=== PATIENT | male | born 1935 | race African-American/Black ===

== ENCOUNTER → 2024-06-06 | Day surgery (SDC) | payer MEDICARE, MEDICAID ==
[~2024-06-06] VITALS: Ht 177.8 cm; Wt 72.6 kg
[~2024-06-06] MED LIST: APIX5TAB PO; ASPI-1497 PO; ATOR-2 PO; EPHEDRINE SULFATE 50MG/ML VIAL ONE; HYDROMORPHONE HCL/PF 1MG/ML INJ IV PRN; LOSA100T33 PO; MEMA5TAB16 PO; METO-539 PO; ONDANSETRON HCL 4MG/2ML INJ IV PRN; PHENYLEPHRINE HCL 10MG/ML 1ML IV ONE; PROPOFOL 200MG/20ML VIAL IV ONE; SIMETHICONE 40 MG/0.6 ML 15ML ONE
[2024-06-06 07:51] LABS: BASOPHILS % 0.8 % (0.0-2.0); EOSINOPHILS % 0.9 % (0.0-5.0); LYMPHOCYTES % 16.4 % (20.0-50.0); MEAN CORPUSCULAR HEMOGLOBIN 32.8 pg (28.0-32.0); MEAN CORPUSCULAR HGB CONC 33.2 g/dL (31.0-37.0); MEAN CORPUSCULAR VOLUME 98.8 fL (80.0-94.0); MONOCYTES % 10.6 % (2.0-8.0); NEUTROPHILS % 71.3 % (40.0-76.0); PLATELET 273 x1000/uL (130-400); RED BLOOD CELL COUNT 3.04 mill/uL (4.7-6.1); RED CELL DISTRIBUTION WIDTH 15.4 % (11.6-14.6)
[2024-06-06 08:04] LABS: POTASSIUM 4.1 mEq/L (3.5-5.1)
[2024-06-06 08:06] LABS: CALCIUM 10.1 mg/dL (8.7-10.4)
[2024-06-06 08:11] LABS: CREATININE 1.7 mg/dL (0.6-1.3)
[2024-06-06] MEDS: LACTATED RINGERS 1,000 ML IV SCH (08:26)
[2024-06-06 08:54] LABS: PARTIAL THROMBOPLASTIN TIME 21.2 sec (23.4-31.0); PROTHROMBIN TIME 10.9 sec (9.6-11.0)
== END | disposition home or self-care (01) ==
LOC: OR 07:14
PROVIDERS: ATTEND Internal Medicine Gastroenterology
DX: D64.9 Anemia, unspecified (principal); K57.30 Diverticulosis of large intestine without perforation or abscess without bleeding; K64.8 Other hemorrhoids; K44.9 Diaphragmatic hernia without obstruction or gangrene; I25.10 Atherosclerotic heart disease of native coronary artery without angina pectoris; I10 Essential (primary) hypertension; E78.5 Hyperlipidemia, unspecified; I49.1 Atrial premature depolarization; Z79.899 Other long term (current) drug therapy; Z79.82 Long term (current) use of aspirin; Z79.01 Long term (current) use of anticoagulants; Z85.46 Personal history of malignant neoplasm of prostate; Z90.79 Acquired absence of other genital organ(s); Z95.1 Presence of aortocoronary bypass graft; Z98.890 Other specified postprocedural states
CPT/HCPCS: 93005; 43255; 45378; 80048; 85025; 85610; 85730; 36415; J3490; J2704; A4663